=== PATIENT | male | born 1950 | race Caucasian/White ===

== ENCOUNTER → 2017-11-05 | Outpatient (CLI) | payer OTHER | LOC: FIMAGING 08:47 | PROVIDERS: ATTEND Orthopaedic Surgery | DX: Z01.818 Encounter for other preprocedural examination (principal); M16.12 Unilateral primary osteoarthritis, left hip ==

== ENCOUNTER → 2018-04-14 | Outpatient (CLI) | payer OTHER | LOC: FIMAGING 11:30 | PROVIDERS: ATTEND Orthopaedic Surgery | DX: Z01.818 Encounter for other preprocedural examination (principal); M24.852 Other specific joint derangements of left hip, not elsewhere classified ==

== ENCOUNTER 2018-04-20 09:25 | Inpatient (IN) | payer OTHER ==
--- NOTE | 2018-04-20 06:53 | PDIAF ---
- Diagnosis Diagnosis: left hip djd Code Status: Full Code - Medication Management Discharge Medications: electronically signed and located in the Home Medication List. - Orders Services needed: Physical Therapy Diet Recommendation: no restrictions on diet Diet Texture: Regular Texture Diet Additional Instructions: TOTAL JOINT ARTHROPLASTY DISCHARGE INSTRUCTIONS 1. Your surgeon follows the [facility] protocol for reducing your risk of DVT (blood clots) following surgery. Medication will be ordered to prevent blood clots. A sudden increase in calf pain and/or swelling could indicate a blood clot in your leg. If this occurs, please call your surgeon or his/her assistant administrator. An ultrasound of the leg may be necessary to diagnose a blood clot. If you have conditions that make you a higher risk for blood clots, your surgeon may use more aggressive ways to prevent them. Notify your surgeon if you think you are a high risk for blood clots. 2. Wear your white surgical stockings (CHANTEL hose) for 2 weeks. This decreases your swelling and may help prevent blood clots. It is ok to remove CHANTEL hose at night time to give your legs a break. 3. Swelling and bruising in the surgical leg is common. If you feel that it is excessive, please notify your surgeon. 4. Elevate your surgical leg with the ankle above the hip several times every day. Please keep the leg straight when you elevate by putting pillows under your foot. Do not put pillows under your knee. This will make being able to fully straighten more difficult. This is uncomfortable, but try to do it as much as possible. 5. For total knee replacements use compressive wrap on your knee for 3-5 days after surgery, then you can discontinue it. 6. Use a walker or crutches for 1-2 weeks. Progress your weight-bearing as tolerated. You may start to use a cane when you feel stable and safe. 7. You will receive physical therapy instructions in the hospital. Continue those exercises at home. There are additional exercises in the total joint booklet you were given before surgery. Outpatient physical therapy will begin 7- 10 days after surgery. Please schedule this in advance. 8. Use ice on your knee at least 3-5 times every day for 30 minutes. This helps reduce pain and swelling. Also use it at night before falling asleep. 9. Leave your surgical dressing in place for 2 weeks. Your dressing is water resistant, but not waterproof. Cover it with Saran Wrap or [id number]-j-Ifmo before showering. You may shower as soon as you feel safe entering a shower. If you notice bleeding from your incision 2 or 3 days after surgery, please notify your surgeon. 10. Due to narcotics, decreased activity and altered diet, most patients experience constipation after surgery. Use xtnw-rtt-ihyetbq stool softeners while you are on narcotics. 11. You may drive a car when you are comfortable bearing weight, have good muscular control of your leg and are off narcotics. This usually occurs 2-4 weeks after surgery, depending on which leg was operated on. 12. If there are questions not addressed here, please refer the [facility] book given for more information. If you still have questions, please contact your surgeon s office. 13. If you have a life-threatening emergency, please call 911 and go to the emergency room immediately. For non-life threatening emergencies, please call your physicians office for advice before going to the emergency room. - Follow Up Care Current Providers and Referrals: Yo Rodriguez MD [Medical Doctor] - Stephani Valdez MD [Primary Care Provider] -
--- NOTE | 2018-04-20 06:53 | PDHPUP ---
History & Physical Update H&P update statement: This history and physical update is based on an assessment of the patient which was completed after admission or registration (within 24 hours), but prior to the surgery/procedure. H&P update: no change in patient's condition since H&P completed
[~2018-04-20 09:25] MED LIST: ROPIVACAINE 0.2% 80 MG, EPINEPHrine 0.2 MG, KETOROLAC TROMETHAMINE 30 MG, morphINE 10 M... IU ONE; TRANEXAMIC ACID 2,000 MG in NS 100 ML IV ONE
[2018-04-20] MEDS ORDERED: ceFAZolin 1 GM/5 ML SYR ONE ×2 (10:02→10:53)
[2018-04-20] MEDS ORDERED: ACETAMINOPHEN 325 MG TAB PO ONE (10:11)
[2018-04-20] MEDS ORDERED: FAMOTIDINE 20 MG TAB PO ONE (10:11)
[2018-04-20] MEDS ORDERED: ceFAZolin 2 GM/DEXTROSE 100 ML IV ONE (10:11)
[2018-04-20] MEDS ORDERED: LR 1,000 ML IV ONE (10:12)
--- NOTE | 2018-04-20 10:28 | PDANEPAE ---
ANE History of Present Illness OA hip ANE Past Medical History - Cardiovascular History Hx Hypertension: No Hx Arrhythmias: Yes Hx Chest Pain: No Hx Coronary Artery / Peripheral Vascular Disease: Yes Hx Palpitations: Yes Cardiovascular History Comment: ATRIAL FIB POST CABG 01/2018 WAS ON ELIQUIS X2 MONTHS - NOW ASPIRIN - Pulmonary History Hx COPD: No Hx Asthma/Reactive Airway Disease: No Hx Recent Upper Respiratory Infection: No Hx Oxygen in Use at Home: No Hx Sleep Apnea: No Sleep Apnea Screening Result - Last Documented: Negative - Neurologic History Hx Cerebrovascular Accident: No Hx Seizures: No Hx Dementia: No - Endocrine History Hx Diabetes: Yes Hypothyroid: No Hyperthyroid: No Obesity: mild Endocrine History Comment: DM II - Renal History Hx Renal Disorders: No - Liver History Hx Hepatic Disorders: No - Neurological & Psychiatric Hx Hx Neurological and Psychiatric Disorders: No - Cancer History Hx Cancer: No - Congenital Disorder History Hx Congenital Disorders: No - GI History Hx Gastrointestinal Disorders: No - Other Health History Other Health History: NEG - Surgical History Prior Surgeries: CABG X2 12/12/2017. CYST TAILBONE REMOVAL. SARAN HERNIA ING ANE Review of Systems Review of systems is: negative Review of Systems: - Exercise capacity METS (RN): 4 METS ANE Patient History - Allergies Allergies/Adverse Reactions: No Known Allergies Allergy (Verified 11/05/17 10:18) - Home Medications Home medications: home medication list seen and reviewed Home Medications: Cholecalciferol Vit D3 [Vitamin D3 (*)] 1,000 units PO DAILY 10/29/17 [Last Taken Unknown] Cyanocobalamin [Vitamin B12 (*)] 1,000 mcg PO DAILY 10/29/17 [Last Taken Unknown ] Herbals/Supplements -Info Only 1 ea PO DAILY 10/29/17 [Last Taken Unknown] metFORMIN HCL [Glucophage 1000 mg] 1,000 mg PO BIDMEAL 10/29/17 [Last Taken Unknown] Aspirin [Aspirin 81mg (*)] 81 mg PO DAILY 03/19/18 [Last Taken Unknown] Atorvastatin Calcium [Lipitor 40 mg (*)] 80 mg PO DAILY 03/19/18 [Last Taken Unknown] Docusate Sodium [Colace 100 MG (*)] 100 mg PO DAILY 03/19/18 [Last Taken Unknown ] Magnesium Oxide [Magnesium Oxide 400 mg (*)] 400 mg PO DAILY 03/19/18 [Last Taken Unknown] Metoprolol Succinate Xr [Toprol Xl 25 mg (*)] 25 mg PO BID 03/19/18 [Last Taken Unknown] - NPO status NPO Status: no food or drink >8 hours - Anes Hx Anes Hx: no prior problems - Smoking Hx Smoking Status: Never smoked Marijuana use: No - Alcohol Use Alcohol Use: None - Family Anes Hx Family Anes Hx: none ANE Labs/Vital Signs - Vital Signs Height: 185.42 cm Weight: 114.759 kg ANE Physical Exam - Airway Neck exam: FROM Mallampati Score: Class 2 Mouth exam: normal dental/mouth exam - Pulmonary Pulmonary: no respiratory distress, clear to auscultation - Cardiovascular Cardiovascular: regular rate and rhythym, no murmur, rub, or gallop - ASA Status ASA Status: III ANE Anesthesia Plan Anesthesia Plan: general endotracheal anesthesia
[2018-04-20] MEDS ORDERED: MIDAZOLAM 2 MG/2 ML VIAL IVP ONE (10:50)
[2018-04-20] MEDS ORDERED: fentaNYL 250 MCG/5 ML INJ ONE (10:53)
[2018-04-20] MEDS ORDERED: PROPOFOL/EMULSION 500 MG/50 ML BOTTLE IV ONE (10:53)
[2018-04-20] MEDS ORDERED: ROCURONIUM 50 MG/5 ML VIAL ONE ×2 (12:58)
[2018-04-20] MEDS ORDERED: SUGAMMADEX SODIUM 200 MG/2 ML VIAL IVP ONE (12:58)
[2018-04-20] MEDS ORDERED: ONDANSETRON 4 MG/2 ML VIAL ONE (12:58)
[2018-04-20] MEDS ORDERED: METOPROLOL TARTRATE 5 MG/5 ML INJ ONE (12:59)
[2018-04-20] MEDS ORDERED: PHENYLEPHRINE HCL 100 MCG/ML SYR ONE (12:59)
[2018-04-20] MEDS ORDERED: POLYETHYLENE GLYCOL 3350 17 GM PKT PO PRN (13:03)
[2018-04-20] MEDS ORDERED: DIPHENOXYLATE/ATROPINE LOMOTIL 1 TAB PO PRN (13:03)
[2018-04-20] MEDS ORDERED: diphenhydrAMINE 25 MG CAP PO PRN (13:03)
[2018-04-20] MEDS ORDERED: BISACODYL 10 MG SUPP PR PRN (13:03)
[2018-04-20] MEDS ORDERED: METOCLOPRAMIDE 10 MG/2 ML VIAL IVP PRN (13:03)
[2018-04-20] MEDS ORDERED: MAGNESIUM HYDROXIDE 30 ML UDCUP PO PRN (13:03)
[2018-04-20] MEDS ORDERED: ONDANSETRON 4 MG/2 ML VIAL IVP PRN (13:03)
[2018-04-20] MEDS ORDERED: CYCLOBENZAPRINE 10 MG TAB PO PRN (13:03)
[2018-04-20] MEDS ORDERED: ONDANSETRON DISINTEGRATING 4 MG TAB PO PRN (13:03)
[2018-04-20] MEDS ORDERED: PROMETHAZINE HCL 25 MG SUPPR PR PRN (13:03)
[2018-04-20] MEDS ORDERED: PROMETHAZINE HCL 25 MG/ML INJ IVP PRN (13:03)
[2018-04-20] MEDS ORDERED: LACTULOSE 20 GM/30 ML UDCUP PO PRN (13:03)
[2018-04-20] MEDS ORDERED: TEMAZEPAM 15 MG CAP PO PRN (13:03)
--- NOTE | 2018-04-20 13:03 | POSTOPPROG ---
Post Op Note Date of Operation: 04/20/18 Surgeon: Yo Rodriguez [employer] Preparer: arielle Anesthesiologist: olga Anesthesia: Spinal Pre-op Diagnosis: left hip djd Post-op Diagnosis: same Indication: same Procedure: left claudy Inf/Abcess present in the surg proc area at time of surgery?: No Depth: Deep Incisional (Fascial) EBL: 100-500
[2018-04-20] MEDS ORDERED: LR 1,000 ML IV SCH (13:30)
[2018-04-20] MEDS ORDERED: fentaNYL 100 MCG/2 ML INJ IVP PRN (13:40)
[2018-04-20] MEDS ORDERED: NALOXONE HCL 0.4 MG/ML INJ IVP PRN (13:40)
[2018-04-20] MEDS ORDERED: HYDROmorphONE/DILAUDID 2 MG/ML INJ IVP PRN (13:40)
--- NOTE | 2018-04-20 13:50 | PDMN ---
Medical Necessity Medical necessity: [facility] S560 hip arthroplasty OP: L CLAIRE AUTH# [id number] APPROVED FOR CPT CODE 12902 TO BE DONE INPATIENT FOR 1 DAY LOS.
[2018-04-20] MEDS: ACETAMINOPHEN 325 MG TAB PO SCH ×2 (18:10→23:27)
[2018-04-20] MEDS: oxyCODONE IR 5 MG TAB PO PRN ×2 (18:11→23:28)
[2018-04-20] MEDS: ceFAZolin 2 GM/DEXTROSE 100 ML IV SCH (18:30)
[2018-04-20] MEDS: TRANEXAMIC ACID 650 MG TAB PO SCH ×2 (18:58→22:13)
[2018-04-20] MEDS: metFORMIN HCL 500 MG TAB PO SCH (19:28)
[2018-04-20] MEDS: ASPIRIN 325 MG TAB PO SCH (20:11)
[2018-04-20] MEDS: METOPROLOL SUCCINATE XR 25 MG TAB PO SCH (20:11)
[2018-04-20] MEDS: SENNOSIDES/DOCUSATE SODIUM TAB PO SCH (20:11)
[2018-04-20] MEDS: FAMOTIDINE 20 MG TAB PO SCH (20:11)
[2018-04-21] MEDS: ACETAMINOPHEN 325 MG TAB PO SCH (06:00)
[2018-04-21] MEDS: TRANEXAMIC ACID 650 MG TAB PO SCH (06:00)
[2018-04-21] MEDS: ceFAZolin 2 GM/DEXTROSE 100 ML IV SCH (06:31)
--- NOTE | 2018-04-21 07:23 | PDIAF ---
- Diagnosis Diagnosis: left hip djd Code Status: Full Code - Medication Management Discharge Medications: electronically signed and located in the Home Medication List. - Orders Services needed: Physical Therapy Diet Recommendation: no restrictions on diet Diet Texture: Regular Texture Diet Additional Instructions: TOTAL JOINT ARTHROPLASTY DISCHARGE INSTRUCTIONS 1. Your surgeon follows the [facility] protocol for reducing your risk of DVT (blood clots) following surgery. Medication will be ordered to prevent blood clots. A sudden increase in calf pain and/or swelling could indicate a blood clot in your leg. If this occurs, please call your surgeon or his/her library technical assistant. An ultrasound of the leg may be necessary to diagnose a blood clot. If you have conditions that make you a higher risk for blood clots, your surgeon may use more aggressive ways to prevent them. Notify your surgeon if you think you are a high risk for blood clots. 2. Wear your white surgical stockings (CHANTEL hose) for 2 weeks. This decreases your swelling and may help prevent blood clots. It is ok to remove CHANTEL hose at night time to give your legs a break. 3. Swelling and bruising in the surgical leg is common. If you feel that it is excessive, please notify your surgeon. 4. Elevate your surgical leg with the ankle above the hip several times every day. Please keep the leg straight when you elevate by putting pillows under your foot. Do not put pillows under your knee. This will make being able to fully straighten more difficult. This is uncomfortable, but try to do it as much as possible. 5. For total knee replacements use compressive wrap on your knee for 3-5 days after surgery, then you can discontinue it. 6. Use a walker or crutches for 1-2 weeks. Progress your weight-bearing as tolerated. You may start to use a cane when you feel stable and safe. 7. You will receive physical therapy instructions in the hospital. Continue those exercises at home. There are additional exercises in the total joint booklet you were given before surgery. Outpatient physical therapy will begin 7- 10 days after surgery. Please schedule this in advance. 8. Use ice on your knee at least 3-5 times every day for 30 minutes. This helps reduce pain and swelling. Also use it at night before falling asleep. 9. Leave your surgical dressing in place for 2 weeks. Your dressing is water resistant, but not waterproof. Cover it with Saran Wrap or [id number]-s-Kzad before showering. You may shower as soon as you feel safe entering a shower. If you notice bleeding from your incision 2 or 3 days after surgery, please notify your surgeon. 10. Due to narcotics, decreased activity and altered diet, most patients experience constipation after surgery. Use alme-gec-vplxjyd stool softeners while you are on narcotics. 11. You may drive a car when you are comfortable bearing weight, have good muscular control of your leg and are off narcotics. This usually occurs 2-4 weeks after surgery, depending on which leg was operated on. 12. If there are questions not addressed here, please refer the [facility] book given for more information. If you still have questions, please contact your surgeon s office. 13. If you have a life-threatening emergency, please call 911 and go to the emergency room immediately. For non-life threatening emergencies, please call your physicians office for advice before going to the emergency room. - Follow Up Care Current Providers and Referrals: Yo Rodriguez MD [Medical Doctor] - Stephani Valdez MD [Primary Care Provider] -
--- NOTE | 2018-04-21 07:25 | SOAPPROG ---
SOAP Progress Note Assessment/Plan: Assessment: s/p claudy Plan:d/c home stable dvt precautions and ant precautions reviewed f/u at two weeks seek attn for increasing complaint s 04/21/18 07:23 Subjective: no co no cp or sob Objective: Vital Signs Temp Pulse Resp BP Pulse Ox 36.8 C 81 16 112/63 96 04/21/18 04:00 04/21/18 04:00 04/21/18 04:00 04/21/18 04:00 04/21/18 04:00 Laboratory Results 04/21/18 04:13 04/20/18 04/21/18 04/22/18 05:59 05:59 05:59 Intake Total 1410 Output Total 865 Balance 545 dressing intact seated in chair neg [facility] xrays stable concentric reduction no fx or lucency ICD10 Worksheet Patient Problems: Problems Problem Status Onset Hip arthritis Acute - ICD10 Problem Qualifiers (1) Hip arthritis
[2018-04-21 07:38] VITALS: BP 108/68
[2018-04-21] MEDS ORDERED: ATORVASTATIN CALCIUM 40 MG TAB PO SCH (09:00)
[2018-04-21] MEDS ORDERED: DOCUSATE SODIUM 100 MG CAP PO SCH (09:00)
[2018-04-21] MEDS ORDERED: MAGNESIUM OXIDE 400 MG TAB PO SCH (09:00)
[2018-04-21] MEDS: ASPIRIN 325 MG TAB PO SCH (09:11)
[2018-04-21] MEDS: SENNOSIDES/DOCUSATE SODIUM TAB PO SCH (09:11)
[2018-04-21] MEDS: metFORMIN HCL 500 MG TAB PO SCH (09:11)
[2018-04-21] MEDS: oxyCODONE IR 5 MG TAB PO PRN (09:12)
[2018-04-21] MEDS: FAMOTIDINE 20 MG TAB PO SCH (09:12)
[2018-04-21] MEDS: METOPROLOL SUCCINATE XR 25 MG TAB PO SCH (11:07)
--- NOTE | 2018-04-21 11:31 | ASMTLACE ---
LACE Length of stay for Answers: 2 days current admission Acuity / Level of Answers: Yes Care: Did the patient have an inpatient admission? Comorbidities - select Answers: Coronary Artery Disease all that apply Diabetes (uncontrolled or controlled) Other Notes: HTN; HLD # of Emergency department Answers: 0 visits in the last 6 months Score: 9 Date Signed: 04/21/2018 11:30 AM Electronically Signed By:ERICK Hobbs
--- NOTE | 2018-04-21 11:34 | ASMTCMCOM ---
CM Note CM Note Notes: Pt had planned OA of hip. Pt to d/c to dghtr home. PT rec outpatient. Pt has had [facility] in the past. Pt declines HHC and has an outpatient PT in mind. Pt just finished cardiac rehab a couple weeks ago. No CM d/c needs identified. Date Signed: 04/21/2018 11:34 AM Electronically Signed By:ERICK Hobbs
--- NOTE | 2018-04-23 16:58 | GOP ---
[f rep st] OPERATIVE REPORT DATE OF OPERATION: 04/20/2018 SURGEON: Yo Rodriguez MD RESET MERCHANDISER: Robert Argueta, BAIL BONDING AGENT, [facility], who was sa medical necessity for the entirety of the case. PREOPERATIVE DIAGNOSIS: Left hip degenerative joint disease. POSTOPERATIVE DIAGNOSIS: Left hip degenerative joint disease. PROCEDURE PERFORMED: Left total hip arthroplasty. FINDINGS: SPECIMENS: To Pathology, femoral head. ESTIMATED BLOOD LOSS: 200 cc. INDICATIONS: The patient is a 67-year-old gentleman with end-stage arthritis to his left hip. He pr esents today for elective total hip replacement. He has failed all attempts at conservative manageme nt. I have outlined the surgical procedure, risks, benefits, alternatives, and he wishes to proceed. Written consent was signed and placed on the patient's chart. DESCRIPTION OF PROCEDURE: The patient was identified in the preanesthesia area. The left hip clearl y demarcated as the operative site with indelible marker. He was given 2 g of Ancef intravenously en route to the operative suite. In the OR, spinal anesthetic was placed. He was positioned in the melendrez pine position. All bony prominences were well padded. He was positioned in the supine position. Ad ditional sedation was carried out. The pelvis and both lower extremities were sterilely prepped and draped in the usual fashion. Appropriate time-out procedure was carried out. Attention was first tu rned to the right iliac crest. A 2 cm incision was made. Three pins were then placed and the pelvic reference array affixed. Attention was then turned to the left hip. An anterior approach was made. Thick subcutaneous flaps were elevated. The fascia overlying the tensor was elevated and the muscl e retracted laterally. The underlying structures were cauterized using the Aquamantys, and hemostasi s was ensured. The rectus was elevated off the anterior capsule. Retractors were placed into an ext racapsular position. A T-capsulotomy was made over the anterior surface, and retractors were placed adjacent to the femoral neck. An acetabular checkpoint was placed. A bony wedge was withdrawn from the femoral neck, and head was removed. The marginal labrum was excised, and again hemostasis was en sured. The bony landmarks were entered into the computer using the Evermind software. Reaming was carried out with a 58 mm reamer with opening angle of 40 degrees and anteversion of 20 degrees. A 5 8 mm acetabular shell was then placed and confirmed to be fully seated. This was stable and appropri ate. An X3 0-degree liner was placed. Attention was then turned to the femur which was delivered th rough the use of extension of the table, external rotation and placement of retractors. The proximal canal was opened. Serial broaching carried out to a size 5 stem. This was visualized intraoperativ ok with intraoperative fluoroscopy. After serial trialing, a 36 mm +7.5 mm neck Biologics head was selected. The trial stem was withdrawn, the final stem impacted, and a 7.5 mm neck length Biolox hea d 36 mm i diameter was placed and confirmed to be fully seated. The hip was irrigated and reduced co ncentrically. This allowed roman catholic of leg lengths. Stability profile demonstrated no subluxatio n with 90 degrees external rotation, full extension. The wound was copiously irrigated with pulsatil e lavage solution. A 10-Chinese Hemovac drain was then placed. The tissue was injected with a joint cocktail of ropivacaine, Toradol and epinephrine. The layers were closed using 0 Vicryl, 2-0 Monocry l, and yanely. Sterile dressing was applied. The patient was awakened and taken to recovery room i n good condition. TOTAL TOURNIQUET TIME: None. COMPLICATIONS: None. IMPLANTS: [place] Tritanium Trident 2 acetabular shell, 58 mm, 0-degree X3 liner, 36 mm inner diamet er, 127 degree neck angle hip stem size 5, Biologic Delta ceramic head 36 mm, +7.5 mm neck length. DISPOSITION: To the recovery room and then the floor. He is weightbearing as tolerated. Anterior h ip precautions. /[id number]/MODL
--- NOTE | 2018-04-24 03:30 | GDS ---
[f rep st] DISCHARGE SUMMARY ADMIT DIAGNOSIS: Left hip degenerative joint disease. DISCHARGE DIAGNOSIS: Left hip degenerative joint disease. PROCEDURE: Left total hip arthroplasty. OPERATIVE INDICATIONS: The patient is a 67-year-old gentleman who presents today for left total hip arthroplasty electively. He understands the risks, benefits, and alternatives, and wished to proceed . HOSPITAL COURSE: The patient was admitted overnight after uncomplicated total hip arthroplasty. He quickly progressed with physical therapy. He had no specific complications. At the time of discharg e, he was tolerating an oral diet. Pain was well controlled on oral medicines. He is voiding withou t difficulty. Dressing is clean, dry, and intact. There is no calf swelling or tenderness and x-ray s are stable with anatomic alignment. DISCHARGE ACTIVITY: Weightbearing as tolerated. Anterior hip precautions. Keep the dressing clean, dry, and intact. Seek attention for increasing redness, swelling, drainage, discharge, or other foc al complaints. DISCHARGE MEDICATIONS: Oxycodone 5 mg 1-2 every 6 hours p.r.n. pain, aspirin 325 mg p.o. daily. FOLLOWUP: Follow up at 2 weeks. /[id number]/MODL
== END 2018-04-21 11:58 | disposition home or self-care (01) | DRG 470 ==
LOC: F3E 09:25 → F3N 16:07
PROVIDERS: ADMIT Orthopaedic Surgery; ATTEND Orthopaedic Surgery
PROC: 0SRB04A Replacement of Left Hip Joint with Ceramic on Polyethylene Synthetic Substitute, Uncemented, Open Approach (ICD-10-PCS; principal; 2018-04-20 14:00)
DX: M16.12 Unilateral primary osteoarthritis, left hip (principal); I48.91 Unspecified atrial fibrillation; E11.9 Type 2 diabetes mellitus without complications; E78.5 Hyperlipidemia, unspecified; Z95.1 Presence of aortocoronary bypass graft
CPT/HCPCS: 97110-GP; 97116-GP; 97161-GP; 97165-GO; 97535-GO; J0171; J0690; J1885; J2250; J2270; J2370; J2405; J2704; J2795; J3010

== ENCOUNTER → 2018-07-10 | Outpatient (CLI) | payer OTHER | LOC: BMCIMAGING 10:39 | PROVIDERS: ATTEND Orthopaedic Surgery | DX: Z47.1 Aftercare following joint replacement surgery (principal); Z96.642 Presence of left artificial hip joint; M16.11 Unilateral primary osteoarthritis, right hip ==

== ENCOUNTER → 2018-07-30 | Outpatient (CLI) | payer OTHER | LOC: BMCIMAGING 12:11 ==